=== PATIENT | female | born 1960 | race African-American/Black ===

== ENCOUNTER 2017-11-24 06:13 | Day surgery (SDC) | payer OTHER ==
[~2017-11-24 06:13] MED LIST: CRESTOR5 MG PO; JANUVIA50 MG PO; LOSARTAN-HCTZ1 EACH PO; OMEPRAZOLE20 M1 PO; PLAVIX75 MG PO; SKELAXIN800 MG PO; TENORMIN25 MG PO; VITAMIN D310000 UNIT PO; ZANTAC300 MG PO
[2017-11-24] MEDS ORDERED: DOXYCYCLINE HY100 MG PO (10:55)
[2017-11-24] MEDS ORDERED: CODE1TAB37 PO (10:55)
== END 2017-11-24 15:45 | disposition home or self-care (01) ==
LOC: CIR.AMB 06:13
DX: N95.0 Postmenopausal bleeding (principal)

== ENCOUNTER 2021-07-01 09:24 | Outpatient (CLI) | payer OTHER ==
[~2021-07-01 09:24] MED LIST changes: +CODE1TAB37 PO; +DOXYCYCLINE HY100 MG PO
== END 2021-07-01 09:50 | disposition home or self-care (01) ==
LOC: MAMO-SONO 09:24
PROVIDERS: ATTEND Surgery
DX: R92.0 Mammographic microcalcification found on diagnostic imaging of breast (principal); N62 Hypertrophy of breast